=== PATIENT | female | born 1940 | race Two or more races ===

== ENCOUNTER 2018-08-15 09:13 | Day surgery (SDC) | payer OTHER ==
[~2018-08-15 09:13] MED LIST: CEFAZOLIN 2 GM/50 ML (PMX) 50 ML IVPB; SOD CHLORIDE 0.9% 1,000 ML IV
[2018-08-15] MEDS ORDERED: CEFAZOLIN 2 GM/50 ML (PMX) 50 ML IVPB (10:00)
[2018-08-15] MEDS: SOD CHLORIDE 0.9% 1,000 ML IV (10:11)
[2018-08-15] MEDS ORDERED: PROPOFOL 20 ML (10:38)
[2018-08-15] MEDS ORDERED: ROCURONIUM 50 MG INJ (10:38)
[2018-08-15] MEDS ORDERED: FENTAnyl 50 MCG/ML VIAL (10:39)
[2018-08-15] MEDS ORDERED: LIDOCAINE 2% (SDV) 5 ML INJ (10:39)
[2018-08-15] MEDS ORDERED: CEFAZOLIN 1 GM INJ (10:51)
[2018-08-15] MEDS ORDERED: ONDANSETRON 4 MG INJ (10:52)
[2018-08-15] MEDS ORDERED: DEXAMETHASONE 4 MG/ML 5 ML INJ (10:52)
[2018-08-15] MEDS ORDERED: ATROPINE 1 MG/10 ML SYRINGE (11:17)
[2018-08-15] MEDS ORDERED: SUGAMMADEX SODIUM 200 MG/2 ML VIAL IV (11:17)
[2018-08-15] MEDS: BUPIVACAINE 0.25% (MPF) 30 ML INJ (11:38)
[2018-08-15] MEDS: FENTAnyl 50 MCG/ML VIAL IV ×2 (11:44→11:54)
[2018-08-15] MEDS: LABETALOL HCL 20MG INJ IV (11:45)
[2018-08-15] MEDS: ONDANSETRON 4 MG INJ IV (11:48)
[2018-08-15] MEDS ORDERED: ALBUTEROL 0.083% (NEB) 2.5 MG/3 ML AMP HHN (12:00)
[2018-08-15] MEDS ORDERED: FENTAnyl 50 MCG/ML VIAL IV ×2 (12:00)
[2018-08-15] MEDS ORDERED: MEPERIDINE 25 MG INJ IV (12:00)
[2018-08-15] MEDS ORDERED: HYDROmorphONE 1 MG/5 ML IV SYRINGE IV ×3 (12:00)
[2018-08-15] MEDS ORDERED: DIPHENHYDRAMINE 50 MG INJ IV (12:00)
[2018-08-15] MEDS ORDERED: hydrALAzine 20 MG INJ IV (12:00)
[2018-08-15] MEDS ORDERED: EPHEDrine SULFATE 50 MG/5 ML SYG IV (12:00)
[2018-08-15] MEDS ORDERED: OXYCODONE/ACETAMINOPHEN (5/325) TAB PO ×2 (12:00)
[2018-08-15] MEDS ORDERED: MIDAZOLAM 1 MG/ML 2 ML INJ IV (12:00)
[2018-08-15] MEDS: KETOROLAC 30 MG INJ IV (12:29)
[2018-08-15] MEDS: HYDROCODONE/APAP (5/325) TAB PO (12:58)
== END 2018-08-15 13:30 | disposition home or self-care (01) ==
LOC: SDS 09:13
DX: K80.10 Calculus of gallbladder with chronic cholecystitis without obstruction (principal); E78.5 Hyperlipidemia, unspecified
CPT/HCPCS: 47562; 88304